=== PATIENT | male | born 1965 | race Two or more races ===

== ENCOUNTER → 2023-12-31 06:27 | Day surgery (SDC) | payer BC, SELFPAY ==
[2023-12-31 07:20] LABS: Glucose - Point of Care 96 mg/dl (70-99)
== END ==
LOC: GI 06:27
PROVIDERS: ATTENDING PHYSICIAN Internal Medicine Gastroenterology
DX: Z12.11 Encounter for screening for malignant neoplasm of colon (principal); Z86.010 Personal history of colon polyps; Z80.0 Family history of malignant neoplasm of digestive organs; K57.30 Diverticulosis of large intestine without perforation or abscess without bleeding; D12.4 Benign neoplasm of descending colon; K55.20 Angiodysplasia of colon without hemorrhage
CPT/HCPCS: 45385; 88305; 82962